=== PATIENT | female | born 1930 | race Caucasian/White ===

== ENCOUNTER 2017-02-22 10:23 | Emergency (ER) | payer OTHER ==
[~2017-02-22] VITALS: Ht 160 cm; Wt 56.7 kg
--- NOTE | ~2017-02-22 | EKG ---
[facility] [place] [place] [address] ELECTROCARDIOGRAM REPORT Name: ALLISONDAYANA CASPER 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: Zulay SALAS : [id number] Requested By: Ana Paula Rae Order Number: [id number] MD: Austyn Driver Measurements Intervals Mobile Rate: 63 P: 28 UT: 168 QRS: 4 QRSD: 115 T: 34 QT: 441 QTc: 452 Interpretive Statements Sinus rhythm Atrial premature complexes in couplets Incomplete right bundle branch block No previous ECG available for comparison Electronically Signed On 02-23-2017 7:46:13 CDT by Austyn Driver [email or web address] <ELECTRONICALLY SIGNED> By: Austyn Driver MD, [facility] 02/23/17 0746 1045 1045 Austyn Driver MD, FACC /EPI
[2017-02-22] MEDS ORDERED: OMEPRAZOLE40 MG PO (10:36)
[2017-02-22] MEDS ORDERED: PRAVACHOL40 MG PO (10:37)
[2017-02-22] MEDS ORDERED: TIROSINT50 MCG PO (10:39)
[2017-02-22] MEDS ORDERED: ARICEPT 5 MG TAB5 MG PO (10:39)
[2017-02-22] MEDS ORDERED: TROSPIUM CHLORI60 MG PO (10:39)
[2017-02-22] MEDS ORDERED: NORCO 10-325 T1 EACH PO (10:40)
[2017-02-22 10:52] LABS: ABSOLUTE NEUTROPHILS 3.8 thou/uL (1.4-8.2); BASOPHILS 1.2 % (0.0-2.0); EOSINOPHILS 2.3 % (0.0-3.0); HEMATOCRIT 38.4 % (37.0-47.0); LYMPHOCYTES 25.5 % (24.0-44.0); MCH 30.3 pg (26.0-34.0); MCHC 33.8 g/dL (28.0-37.0); MCV 89.7 fL (80.0-100.0); MONOCYTES 8.8 % (1.0-8.0); POLYS 62.2 % (36.0-66.0); RBC 4.28 mil/uL (4.20-5.00); RDW 13.1 % (10.5-14.5); WBC 6.1 thou/uL (4.0-11.0)
[2017-02-22 10:54] LABS: MANUAL DIFF NO
[2017-02-22 10:55] LABS: PLATELET COUNT 235 thou/uL (150-400)
[2017-02-22 11:06] LABS: CALCIUM 9.4 mg/dL (8.5-10.1); POTASSIUM 4.1 mmol/L (3.5-5.1)
[2017-02-22 11:09] LABS: APTT 25.6 Seconds (24.5-32.8)
[2017-02-22 12:58] VITALS: BP 159/79
== END 2017-02-22 12:45 | disposition short-term general hospital (02) ==
LOC: EDSEX 10:23 → ER 10:23
PROVIDERS: Emergency Medicine
DX: I61.0 Nontraumatic intracerebral hemorrhage in hemisphere, subcortical (principal)